=== PATIENT | female | born 1975 | race Caucasian/White ===

== ENCOUNTER 2021-05-13 10:27 | Outpatient (AMBR) | payer MEDICAID, SELFPAY ==
--- NOTE | 2021-04-29 10:30 | PTNOTE_ITS ---
PT OP Initial Eval Patient Information Visit Reasons: ANKLE PAIN/TIBIAL TENDINITIS Medical Diagnosis: M72.2; M76.82 Treatment Dx #1: Right Foot Pain Start of Care: 04/29/21 Date of Onset: 1 year ago Initial Assessment Subjective Pt is a 45 y/o female c/o chronic feet pain R>L started 1 year ago. Pt recently received 2 cortisone shots in her right foot which seem to help the pain. Prior to the medicine she was a 10/10 pain. When Pt has pain she has limitation with walking, standing, chores, self care, cooking, cleaning, work duties, and performing recreational activities. Objective Right Ankle AROM: all motions are WFL Right Ankle MMTs: grossly 3+/5 Right Hip MMTs Glute Med: 3/5 Glute Max: 3/5 SLS: NT Assessment Pt demonstrate right foot pain and weakness leading to decline function. Pt will benefit from physical therapy to increase ankle stability, mobility, and work on balance. Short Term and Group Home Goals 1) Increase right ankle AROM WNL in 6 wks to be able to perform chores 2) Increase right ankle MMTs grossly to 4-/5 in 6 wks to be able to ambulate 3) Increase right hip MMTs grossly to 4-/5 in 6 wks to be able to return to work 4) Increase SLS to 15 sec in 6 wks to be able to perform self care activities 5) Indep with HEP Treatment Plan 1) Manual Therapy 2) Therapeutic Activities 3) Therapeutic Exercises 4) Modalities (ice, heat) 5) Balance Training Frequency and Duration 2 x wk for 6 wks Certification Dates: 04/29/21 to 07/30/21 Office Procedures PT Procedures PT Date of Service: 04/29/21 OP PT Eval Mod Complex 30 minutes: Yes
--- NOTE | 2021-05-01 08:35 | PT.ODAYNRPT ---
PT Outpatient Daily Note Date of Service: 05/01/21 OP Daily Note Visit Reasons: ANKLE PAIN/TIBIAL TENDINITIS Outpatient Physical Therapy Treatment Date: 05/01/21 Subjective: Foot has been okay due to shots helping with the pain about 2-3 weeks ago. Objective: Please see flowsheet for therex performed Assessment: Pt tolerated all therex well with good activity tolerance and good teach back. Added ankle 4 way, towel grabs, and peg pick ups with feet to decrease pain and strengthen the muscles of the R foot. Pt completed all reps and sets with ease except for ankle plantar flexion where pt reported discomfort @ TC joint toward end of set. Plan: Continue with POC Length of Time (minutes) of Treatment: 30 Minutes Office Procedures PT Procedures PT Date of Service: 04/29/21 Therapeutic Exercise 30 minutes: Yes PT Procedures PT Date of Service: 05/01/21 Therapeutic Exercise 30 minutes: Yes
--- NOTE | 2021-05-04 08:45 | PT.ODAYNRPT ---
PT Outpatient Daily Note Date of Service: 05/04/21 OP Daily Note Visit Reasons: ANKLE PAIN/TIBIAL TENDINITIS Outpatient Physical Therapy Treatment Date: 05/04/21 Subjective: Pt's knee ankle hurts today seems like medication worn off. Pt still wears her ankle brace at night. Objective: Please see flow chart for list of ther ex performed Assessment: tolerate exercises with minimal pain Plan: Continue with PT Length of Time (minutes) of Treatment: 30 Minutes Office Procedures PT Procedures PT Date of Service: 04/29/21 Therapeutic Exercise 30 minutes: Yes PT Procedures PT Date of Service: 05/04/21 Therapeutic Exercise 30 minutes: Yes PT Procedures PT Date of Service: 05/01/21 Therapeutic Exercise 30 minutes: Yes
--- NOTE | 2021-05-07 15:26 | PT.ODAYNRPT ---
PT Outpatient Daily Note Date of Service: 05/07/2021 OP Daily Note Visit Reasons: ANKLE PAIN/TIBIAL TENDINITIS Outpatient Physical Therapy Treatment Date: 05/07/21 Subjective: pt had no complaints upon visit. Objective: see flow sheet. Assessment: pt very quiet with very little feedback during treatment. she needed manual assistance with her ankle 4-way as she has difficulty with isolating the ankle. she tends to flex the knee and rotate the hip to compensate for the ankle motion. without assistance she is not able to fully isolate the ankle for all reps. Plan: continue POC per PT. Length of Time (minutes) of Treatment: 30 Minutes Office Procedures PT Procedures PT Date of Service: 04/29/21 Therapeutic Exercise 30 minutes: Yes PT Procedures PT Date of Service: 05/04/21 Therapeutic Exercise 30 minutes: Yes PT Procedures PT Date of Service: 05/07/21 Therapeutic Exercise 30 minutes: Yes PT Procedures PT Date of Service: 05/01/21 Therapeutic Exercise 30 minutes: Yes
--- NOTE | 2021-05-13 12:51 | PT.ODS1RPT ---
PT OP Progress/Discharge Note Date of Service: 05/13/21 Progress Note/DC Note Progress Note/Discharge Note: DC Note Patient Information Visit Reasons: ANKLE PAIN/TIBIAL TENDINITIS Medical Diagnosis: M72.2; M76.82 Treatment Dx #1: Right Foot Pain Service Continue Service or Discharge: Discharge Discharge Date: 05/13/21 Status Subjective: Pt's foot pain is much better since the shot. Pt has been able to walk, stand, perform chores, and recreational activities with minimal limitation. At this time Pt will like to be release from physical therapy with exercises to continue at home since she lives in [place]. Objective: Right Ankle AROM: all motions are WNL Right Ankle MMTs: grossly 4-/5 Right Hip MMTs Glute Med: 3+/5 Glute Max: 3+/5 SLS: 15 sec Assessment: Pt demonstrate functional ankle ROM and ankle strength allowing her to resume ADLs with minimal limitation. Pt will no longer benefit from physical therapy due to meeting set goals in therapy. Pt was instructed on HEP last session and educated to continue exercises to maintain overall mobility. Pt performed all exercises safely, thank you for your referrals. Plan: D/C home with HEP and follow up with provider PRN Office Procedures PT Procedures PT Date of Service: 04/29/21 Therapeutic Exercise 30 minutes: Yes PT Procedures PT Date of Service: 05/04/21 Therapeutic Exercise 30 minutes: Yes PT Procedures PT Date of Service: 05/07/21 Therapeutic Exercise 30 minutes: Yes PT Procedures PT Date of Service: 05/13/21 Therapeutic Exercise 30 minutes: Yes PT Procedures PT Date of Service: 05/01/21 Therapeutic Exercise 30 minutes: Yes
== END 2021-05-26 23:59 | disposition home or self-care (01) ==
PROVIDERS: PCP Physician Assistant; Referring Provider Physician Assistant; Visit Provider Podiatrist
DX: M72.2 Plantar fascial fibromatosis (principal); M79.671 Pain in right foot; G89.29 Other chronic pain; R26.2 Difficulty in walking, not elsewhere classified; R53.1 Weakness
CPT/HCPCS: 97110; 97162